=== PATIENT | female | born 1980 | race Caucasian/White ===

== ENCOUNTER 2020-08-13 06:50 | Day surgery (SDC) | payer MEDICAID ==
[2020-08-07 12:24] LABS: BASOPHILS % (AUTO) 0.7 % (0-1); EOSINOPHILS % (AUTO) 0.6 % (0-6); LYMPHOCYTES # (AUTO) 1.6 X10'3 (1.1-4.8); LYMPHOCYTES % (AUTO) 28.7 % (21-51); MEAN CORPUSCULAR HEMOGLOBIN 30.1 PG (27.0-31.0); MEAN CORPUSCULAR HGB CONC 33.6 g/dL (33.0-36.5); MEAN CORPUSCULAR VOLUME 89.7 FL (78-98); MEAN PLATELET VOLUME 8.3 FL (7.4-10.4); MONOCYTES # (AUTO) 0.4 X10'3 (0-0.9); MONOCYTES % (AUTO) 6.4 % (2-12); NEUTROPHILS # (AUTO) 3.7 X10'3 (1.8-7.7); NEUTROPHILS % (AUTO) 63.6 % (42-75); PRE OP HEMATOCRIT 34.7 % (35.0-45.0); PRE OP HEMOGLOBIN 11.7 g/dL (12.0-16.0); PRE OP PLATELET COUNT 274 X10'3 (140-440); RED BLOOD COUNT 3.87 X10'6 (4.20-5.60); RED CELL DISTRIBUTION WIDTH 14.1 % (11.5-14.5)
[2020-08-07 12:31] LABS: CLARITY,URINE CLOUDY (Clear); COLOR,URINE YELLOW (Yellow); GLUCOSE, URINE NEGATIVE (Neg); KETONES,URINE NEGATIVE (Neg); LEUKOCYTE ESTERASE ,URINE NEGATIVE (Neg); NITRITES, URINE NEGATIVE (Neg); OCCULT BLOOD,URINE MODERATE (Neg); PROTEIN,URINE NEGATIVE (Neg)
[2020-08-07 12:33] LABS: UA COLLECTION TYPE CLN CATCH MIDSTREAM
[2020-08-07 12:36] LABS: PRE OP INR 1.1 INR; PRE OP PROTIME 10.9 SECONDS (9.0-12.0)
[2020-08-07 12:40] LABS: BACTERIA,URINE FEW /HPF (Neg); MUCUS STRANDS MANY /LPF (Neg); RBC,URINE 0-2 /HPF (0-2); SQUAMOUS EPITHELIAL CELL,UR MODERATE /LPF (FEW)
[2020-08-07 12:40] LABS: ALBUMIN 3.9 G/DL (3.4-5.0); ALBUMIN/GLOBULIN RATIO 0.9 (1.1-1.5); ALKALINE PHOSPHATASE 76 IU/L (46-116); BLOOD UREA NITROGEN 10 MG/DL (7-18); BUN/CREATININE RATIO 15.4 (6.6-38.0); CALCIUM 9.3 MG/DL (8.5-10.1); CHLORIDE 107 MMOL/L (99-107); CREATININE 0.65 MG/DL (0.40-0.90); PRE OP ALT 36 U/L (30-65); PRE OP ANION GAP 7 (8-16); PRE OP AST 37 U/L (10-37); PRE OP BILIRUB, TOTAL 0.4 MG/DL (0.0-1.0); PRE OP GLUCOSE 88 MG/DL (70-104); PRE OP SODIUM 140 MMOL/L (135-145); TOTAL CARBON DIOXIDE 26.3 MMOL/L (24-32); TOTAL PROTEIN 8.1 G/DL (6.4-8.2); eGFR > 90 ML/MIN
[2020-08-07 12:43] LABS: HCG SERUM QL NEGATIVE
[~2020-08-13] VITALS: Ht 154.9 cm; Wt 58.6 kg
[2020-08-13] VITALS (11 sets, daily range): BP systolic 108–135; BP diastolic 57–76
[~2020-08-13 06:50] MED LIST: NORCO10T PO; ceFOXitin 2GM-NS 100mL ADDvant 100 ML IV ONE; famotidine 20mg tablet PO ONE; ringers solution, lacted 1,000 ML IV SCH
[2020-08-13] MEDS ORDERED: midazolam 1 mg/ML 2ml injection ONE (07:21)
[2020-08-13] MEDS ORDERED: fentaNYL/PF 50MCG/1 ML 2ML syringe ONE ×2 (07:21→08:31)
[2020-08-13] MEDS ORDERED: LIDOcaine 1% (10mg/ml) 2ml vial ONE (07:42)
[2020-08-13] MEDS ORDERED: BUPIVAcaine/PF 2.5 mg/ml (0.25%) 30ml vial ONE (07:43)
[2020-08-13] MEDS ORDERED: ringers solution, lacted 1,000 ML IV SCH (07:55)
[2020-08-13] MEDS ORDERED: ondansetron/PF 4mg/2ml inj IV PRN (07:55)
[2020-08-13] MEDS ORDERED: proCHLORperazine 10 MG/2 ml inj IV PRN (07:55)
[2020-08-13] MEDS ORDERED: morphine 2 MG/ML inj. syringe IV PRN (07:55)
[2020-08-13] MEDS ORDERED: meperidine/PF 25mg/ml syringe IV PRN ×3 (07:55)
[2020-08-13] MEDS ORDERED: sevoflurane 250ml liquid IH ONE (07:56)
[2020-08-13] MEDS ORDERED: propofol inj 20 ML IV ONE (08:31)
[2020-08-13] MEDS ORDERED: ondansetron/PF 4mg/2ml inj ONE (08:32)
[2020-08-13] MEDS ORDERED: rocuronium 10mg/ml inj IV ONE (08:32)
[2020-08-13] MEDS ORDERED: neostigmine methylsulfate 1 MG/ML 10ml vial ONE (08:32)
[2020-08-13] MEDS ORDERED: dexamethasone sod phosphate 4mg/ml inj. ONE (08:32)
[2020-08-13] MEDS ORDERED: LIDOcaine 2% (20mg/ml) 5ml vial ONE (08:32)
[2020-08-13] MEDS ORDERED: glycopyrrolate 0.2mg/ml inj ONE (08:32)
--- NOTE | 2020-08-13 08:57 | NUR ---
Received from OR via [facility] IN STABLE CONDITION, accompanied by Anesthesiologist and ASSOCIATE TECHNICIAN report given by Brad. Addendum: 08/13/20 at 1033 by Ida Luo RN Amended: Links added.
[2020-08-13] MEDS: morphine 4 MG/ML inj SYRINge IV PRN ×2 (09:31→09:49)
[2020-08-13] MEDS ORDERED: ketorolac trometh. 30mg/ml inj. IM ONE (09:50)
--- NOTE | 2020-08-13 10:57 | NUR ---
PATIENT DISCHARGED FROM PACU AFTER WRITTEN AND VERBAL DIS CHARGE INSTRUCTIONS GIVEN, PATIENT GAVE VERBAL UNDERSTANDING OF INSTRUCTIONS GIVEN. PATIENT LEFT FACILITY VIA WHEELCHAIR WITH RN. Addendum: 08/13/20 at 1100 by Ida Luo RN Amended: Links added.
== END 2020-08-13 10:57 | disposition home or self-care (01) ==
LOC: PAS 06:50
PROVIDERS: ATTEND Obstetrics & Gynecology
DX: Z30.2 Encounter for sterilization (principal); G89.29 Other chronic pain; Z20.822 Contact with and (suspected) exposure to COVID-19; Z79.01 Long term (current) use of anticoagulants; Z79.899 Other long term (current) drug therapy; Z98.890 Other specified postprocedural states; Z90.49 Acquired absence of other specified parts of digestive tract
CPT/HCPCS: 36415; 58670; 80053; 81001; 84703; 85025; 85610; 85730; 86885; 86900; 86901; 87088; J0694; J1100; J2001; J2175; J2250; J2270; J2405; J2704; J2710; J3010; J3490; U0003; U0005; A4618; J7120

== ENCOUNTER 2021-10-12 17:25 | Emergency (ER) | payer MEDICAID ==
[~2021-10-12] VITALS: Ht 154.9 cm; Wt 57.7 kg
[~2021-10-12 17:25] MED LIST changes: -ceFOXitin 2GM-NS 100mL ADDvant 100 ML IV ONE; -famotidine 20mg tablet PO ONE; -ringers solution, lacted 1,000 ML IV SCH
[2021-10-12 18:16] LABS: CLARITY,URINE CLEAR (Clear); COLOR,URINE YELLOW (Yellow); GLUCOSE, URINE NEGATIVE (Neg); KETONES,URINE NEGATIVE (Neg); LEUKOCYTE ESTERASE ,URINE NEGATIVE (Neg); NITRITES, URINE NEGATIVE (Neg); OCCULT BLOOD,URINE TRACE-INTACT (Neg); PH,URINE 6.5 (4.8-8.0); PROTEIN,URINE NEGATIVE (Neg); UROBILINOGEN,URINE 0.2 E.U/dL (0.2-1.0)
[2021-10-12 18:19] LABS: URINE HCG NEGATIVE (NEG)
[2021-10-12 18:29] LABS: UA COLLECTION TYPE CLN CATCH MIDSTREAM
[2021-10-12 18:36] LABS: BACTERIA,URINE NONE SEEN /HPF (Neg); MUCUS STRANDS FEW /LPF (Neg); RBC,URINE 0-2 /HPF (0-2); SQUAMOUS EPITHELIAL CELL,UR FEW /LPF (FEW); WBC,URINE NONE SEEN /HPF (0-4)
[2021-10-12 18:43] LABS: BASOPHILS % (AUTO) 0.4 % (0-1); EOSINOPHILS % (AUTO) 0.2 % (0-6); HEMATOCRIT 38.7 % (35.0-45.0); HEMOGLOBIN 12.8 g/dl (12.0-16.0); LYMPHOCYTES # (AUTO) 1.7 X10'3 (1.1-4.8); MEAN CORPUSCULAR HEMOGLOBIN 29.5 PG (27.0-31.0); MEAN CORPUSCULAR HGB CONC 33.1 g/dL (33.0-36.5); MEAN CORPUSCULAR VOLUME 89.3 FL (78-98); MONOCYTES # (AUTO) 0.5 X10'3 (0-0.9); MONOCYTES % (AUTO) 6.8 % (2-12); NEUTROPHILS # (AUTO) 5.3 X10'3 (1.8-7.7); NEUTROPHILS % (AUTO) 70.6 % (42-75); PLATELET COUNT 353 X10'3 (140-440); RED BLOOD COUNT 4.33 X10'6 (4.20-5.60); RED CELL DISTRIBUTION WIDTH 14.1 % (11.5-14.5); WHITE BLOOD COUNT 7.5 X10'3 (4.5-11.0)
[2021-10-12 18:52] LABS: ALANINE AMINOTRANSFERASE 12 U/L (12-78); ALBUMIN/GLOBULIN RATIO 0.9 (1.1-1.5); ALKALINE PHOSPHATASE 81 IU/L (46-116); AMYLASE 92 U/L (25-115); ANION GAP 8 (8-16); ASPARTATE AMINO TRANSFERASE 21 U/L (10-37); BILIRUBIN,TOTAL 0.2 MG/DL (0.1-1.0); BLOOD UREA NITROGEN 8 MG/DL (7-18); BUN/CREATININE RATIO 11.4 (6.6-38.0); CALCIUM 9.5 MG/DL (8.5-10.1); CHLORIDE 102 MMOL/L (99-107); GLUCOSE 92 MG/DL (70-104); LIPASE 190 U/L (73-393); POTASSIUM 4.7 MMOL/L (3.5-5.1); SODIUM 139 MMOL/L (135-145); TOTAL PROTEIN 8.6 G/DL (6.4-8.2); eGFR > 90 ML/MIN
[2021-10-12] MEDS ORDERED: ketorolac trometh. 30mg/ml inj. IM ONE (20:15)
[2021-10-12] MEDS ORDERED: morphine 4 MG/ML inj SYRINge IM ONE (20:15)
[2021-10-12] MEDS ORDERED: ondansetron 4mg rapidly disintigrating tab PO ONE (20:15)
[2021-10-12] MEDS ORDERED: HYDROcodone/acetaminophen 10/325mg tab PO ONE (23:15)
[2021-10-13] MEDS ORDERED: iohexol 350MG/ML 100ml bottle IV ONE (00:18)
--- NOTE | 2021-10-13 03:27 | NUR ---
PATIENT REQUESTING MORE PAIN MEDICATION. NOTIFIED ED PHYSICIAN. AWAITING ORDERS. PATIENT NOTIFIED.
[2021-10-13] MEDS ORDERED: ketorolac tromethamine 15mg/ml inj. IV ONE (04:50)
[2021-10-13] MEDS ORDERED: HYDROcodone/acetaminophen 10/325mg tab PO ONE (04:50)
[2021-10-13 05:01] VITALS: BP 117/78
== END 2021-10-13 05:11 | disposition home or self-care (01) ==
LOC: ER 17:26
DX: R10.9 Unspecified abdominal pain (principal); R11.0 Nausea; G89.29 Other chronic pain; M54.9 Dorsalgia, unspecified; Z56.0 Unemployment, unspecified; Z79.899 Other long term (current) drug therapy
CPT/HCPCS: 36415; 74177; 76856; 80053; 81001; 81025; 82150; 83690; 85025; 93976; 96372; 96374; 99285; J1885; J2270; J3490; Q9967

== ENCOUNTER 2021-11-25 10:50 | Emergency (ER) | payer MEDICAID ==
[~2021-11-25] VITALS: Ht 154.9 cm; Wt 62.0 kg
[2021-11-25 11:02] VITALS: BP 140/95
[2021-11-25 11:54] LABS: BASOPHILS % (AUTO) 0.5 % (0-1); EOSINOPHILS % (AUTO) 0 % (0-6); HEMOGLOBIN 11.5 g/dl (12.0-16.0); LYMPHOCYTES # (AUTO) 1.3 X10'3 (1.1-4.8); LYMPHOCYTES % (AUTO) 19.9 % (21-51); MEAN CORPUSCULAR HEMOGLOBIN 29.9 PG (27.0-31.0); MEAN CORPUSCULAR HGB CONC 33.8 g/dL (33.0-36.5); MEAN CORPUSCULAR VOLUME 88.5 FL (78-98); MONOCYTES # (AUTO) 0.5 X10'3 (0-0.9); MONOCYTES % (AUTO) 7.1 % (2-12); NEUTROPHILS # (AUTO) 4.6 X10'3 (1.8-7.7); NEUTROPHILS % (AUTO) 72.5 % (42-75); PLATELET COUNT 305 X10'3 (140-440); RED BLOOD COUNT 3.84 X10'6 (4.20-5.60); RED CELL DISTRIBUTION WIDTH 13.5 % (11.5-14.5); WHITE BLOOD COUNT 6.4 X10'3 (4.5-11.0)
[2021-11-25 11:56] LABS: CLARITY,URINE CLOUDY (Clear); COLOR,URINE YELLOW (Yellow); GLUCOSE, URINE NEGATIVE (Neg); KETONES,URINE NEGATIVE (Neg); LEUKOCYTE ESTERASE ,URINE NEGATIVE (Neg); NITRITES, URINE NEGATIVE (Neg); OCCULT BLOOD,URINE MODERATE (Neg); PROTEIN,URINE NEGATIVE (Neg); URINE HCG NEGATIVE (NEG); UROBILINOGEN,URINE 0.2 E.U/dL (0.2-1.0)
[2021-11-25 12:03] LABS: UA COLLECTION TYPE CLN CATCH MIDSTREAM
[2021-11-25 12:05] LABS: BACTERIA,URINE 3+ /HPF (Neg); MUCUS STRANDS FEW /LPF (Neg); RBC,URINE 0-2 /HPF (0-2); SQUAMOUS EPITHELIAL CELL,UR MODERATE /LPF (FEW)
[2021-11-25 12:17] LABS: ALANINE AMINOTRANSFERASE 17 U/L (12-78); ALBUMIN 3.8 G/DL (3.4-5.0); ALBUMIN/GLOBULIN RATIO 0.9 (1.1-1.5); ALKALINE PHOSPHATASE 63 IU/L (46-116); ANION GAP 4 (8-16); ASPARTATE AMINO TRANSFERASE 24 U/L (10-37); BILIRUBIN,TOTAL 0.3 MG/DL (0.1-1.0); BLOOD UREA NITROGEN 7 MG/DL (7-18); BUN/CREATININE RATIO 12.7 (6.6-38.0); CALCIUM 9.1 MG/DL (8.5-10.1); CHLORIDE 107 MMOL/L (99-107); CREATININE 0.55 MG/DL (0.40-0.90); GLUCOSE 110 MG/DL (70-104); LIPASE 155 U/L (73-393); POTASSIUM 4.1 MMOL/L (3.5-5.1); SODIUM 138 MMOL/L (135-145); TOTAL CARBON DIOXIDE 26.6 MMOL/L (24-32); TOTAL PROTEIN 7.9 G/DL (6.4-8.2); eGFR > 90 ML/MIN
[2021-11-25] MEDS ORDERED: ringers solution, lactated 1000ml IV soln IV ONE (13:30)
[2021-11-25] MEDS ORDERED: morphine 4 MG/ML inj SYRINge IV ONE ×2 (13:30→16:40)
[2021-11-25] MEDS ORDERED: ondansetron/PF 4mg/2ml inj IV ONE (13:30)
[2021-11-25] MEDS ORDERED: iohexol 300mg/ml 100ml inj. ONE (14:52)
[2021-11-25] MEDS ORDERED: ketorolac tromethamine 15mg/ml inj. IV ONE (17:45)
[2021-11-25] MEDS ORDERED: SENN1TAB82 PO (19:12)
[2021-11-25] MEDS ORDERED: HYDR-3965 PO (19:12)
[2021-11-25] MEDS ORDERED: POLY119P2 PO (19:12)
== END 2021-11-25 19:24 | disposition home or self-care (01) ==
LOC: ER 10:51
DX: R10.31 Right lower quadrant pain (principal); G89.29 Other chronic pain; M54.50 Low back pain, unspecified; Z90.49 Acquired absence of other specified parts of digestive tract; Z98.51 Tubal ligation status; Z56.0 Unemployment, unspecified
CPT/HCPCS: 36415; 74177; 76856; 80053; 81001; 81025; 83690; 85025; 87088; 87210; 93976; 96361; 96374; 96375; 96376; 99285; J1885; J2270; J2405; J3490; J7120; Q9967